=== PATIENT | male | born 1980 | race Caucasian/White ===

== ENCOUNTER 2022-03-28 22:05 | Emergency (ER) | payer MEDICAID ==
[~2022-03-28] VITALS: Ht 182.9 cm; Wt 63.6 kg
[2022-03-29] MEDS ORDERED: NO HOME MEDS (00:48)
[2022-03-29] MEDS ORDERED: DOXYCYCLINE 100MG CAPSULE PO STA (02:15)
[2022-03-29] MEDS ORDERED: acetaminophen 325mg tablet PO ONE (02:15)
[2022-03-29] MEDS ORDERED: ibuprofen 200mg tablet PO ONE (02:15)
[2022-03-29] MEDS ORDERED: CEPH-585 PO (02:28)
[2022-03-29] MEDS ORDERED: cephalexin 250mg capsule PO ONE (02:30)
[2022-03-29 04:53] VITALS: BP 111/73
== END 2022-03-29 04:55 | disposition home or self-care (01) ==
LOC: ER 22:05
DX: S90.812A Abrasion, left foot, initial encounter (principal); S90.811A Abrasion, right foot, initial encounter; Z91.040 Latex allergy status; Z59.00 Homelessness unspecified; X58.XXXA Exposure to other specified factors, initial encounter; Y93.89 Activity, other specified; Y92.89 Other specified places as the place of occurrence of the external cause; Y99.8 Other external cause status
CPT/HCPCS: 73630; 82948; 99284

== ENCOUNTER 2022-05-04 02:26 | Emergency (ER) | payer MEDICAID ==
[~2022-05-04] VITALS: Ht 182.9 cm; Wt 81.5 kg
[~2022-05-04 02:26] MED LIST: NO HOME MEDS
[2022-05-04] MEDS ORDERED: ketorolac trometh. 30mg/ml inj. IV ONE (05:05)
[2022-05-04] MEDS ORDERED: ringers solution, lacted 1,000 ML IV ONE (05:05)
[2022-05-04 05:39] LABS: BASOPHILS % (AUTO) 0.4 % (0-1); EOSINOPHILS # (AUTO) 0.2 X10'3 (0-0.9); EOSINOPHILS % (AUTO) 2.5 % (0-6); HEMATOCRIT 41.9 % (42.0-52.0); LYMPHOCYTES # (AUTO) 1.6 X10'3 (1.1-4.8); LYMPHOCYTES % (AUTO) 25.4 % (21-51); MEAN CORPUSCULAR HGB CONC 33.3 g/dL (33.0-36.5); MEAN PLATELET VOLUME 8.1 FL (7.4-10.4); MONOCYTES # (AUTO) 0.6 X10'3 (0-0.9); MONOCYTES % (AUTO) 8.8 % (2-12); NEUTROPHILS % (AUTO) 62.9 % (42-75); PLATELET COUNT 272 X10'3 (140-440); RED BLOOD COUNT 4.65 X10'6 (4.70-6.10); RED CELL DISTRIBUTION WIDTH 14.3 % (11.5-14.5); WHITE BLOOD COUNT 6.4 X10'3 (4.5-11.0)
[2022-05-04 05:57] LABS: ALANINE AMINOTRANSFERASE 17 U/L (12-78); ALBUMIN 4.1 G/DL (3.4-5.0); ALBUMIN/GLOBULIN RATIO 1.5 (1.1-1.5); ALKALINE PHOSPHATASE 63 IU/L (46-116); ANION GAP 12 (8-16); ASPARTATE AMINO TRANSFERASE 11 U/L (10-37); BILIRUBIN,TOTAL 0.7 MG/DL (0.1-1.0); BLOOD UREA NITROGEN 12 MG/DL (7-18); BUN/CREATININE RATIO 12.2 (5.4-32.0); CALCIUM 8.9 MG/DL (8.5-10.1); CHLORIDE 104 MMOL/L (99-107); CREATININE 0.98 MG/DL (0.60-1.10); ETHANOL < 0.010 GM/DL (0.0-0.010); GLUCOSE 90 MG/DL (70-104); LIPASE 83 U/L (73-393); POTASSIUM 3.2 MMOL/L (3.5-5.1); SODIUM 143 MMOL/L (135-145); TOTAL CARBON DIOXIDE 27.2 MMOL/L (24-32); TOTAL PROTEIN 6.9 G/DL (6.4-8.2); eGFR 85 ML/MIN
[2022-05-04 06:48] LABS: URINE AMPHETAMINE SCREEN NEGATIVE (Neg); URINE BARBITUATE SCREEN NEGATIVE (Neg); URINE BENZODIAZEPINES SCREEN NEGATIVE (Neg); URINE CANNABINOID SCREEN NEGATIVE (Neg); URINE COCAINE SCREEN NEGATIVE (Neg); URINE METHADONE SCREEN NEGATIVE (Neg); URINE OPIATE SCREEN NEGATIVE (Neg); URINE PHENCYCLIDINE SCREEN NEGATIVE (Neg)
[2022-05-04 06:55] LABS: CLARITY,URINE CLEAR (Clear); COLOR,URINE YELLOW (Yellow); GLUCOSE, URINE NEGATIVE (Neg); KETONES,URINE NEGATIVE (Neg); LEUKOCYTE ESTERASE ,URINE NEGATIVE (Neg); NITRITES, URINE NEGATIVE (Neg); OCCULT BLOOD,URINE MODERATE (Neg); PROTEIN,URINE NEGATIVE (Neg)
[2022-05-04 07:06] LABS: UA COLLECTION TYPE VOIDED
[2022-05-04 07:08] LABS: BACTERIA,URINE NONE SEEN /HPF (Neg); SQUAMOUS EPITHELIAL CELL,UR FEW /LPF (FEW); WBC,URINE 0-4 /HPF (0-4)
[2022-05-04 07:09] LABS: MUCUS STRANDS MANY /LPF (Neg)
[2022-05-04] MEDS ORDERED: potassium chloride 10mEq ER tablet PO ONE (07:20)
[2022-05-04] MEDS ORDERED: potassium Cl 20 mEq SR tablet PO ONE (07:25)
[2022-05-04 08:08] VITALS: BP 123/88
== END 2022-05-04 08:10 | disposition home or self-care (01) ==
LOC: ER 02:27
DX: M54.9 Dorsalgia, unspecified (principal); R10.9 Unspecified abdominal pain; Z87.442 Personal history of urinary calculi; Z59.00 Homelessness unspecified; Z91.040 Latex allergy status; Z79.899 Other long term (current) drug therapy
CPT/HCPCS: 36415; 74176; 80053; 80305; 80320; 81001; 83690; 85025; 96361; 96374; 99284; J1885; J7120

== ENCOUNTER 2024-04-30 21:52 | Emergency (ER) | payer MEDICAID ==
[~2024-04-30] VITALS: Ht 182.9 cm; Wt 69.5 kg
[2024-04-30 23:08] VITALS: BP 152/74; PULSE 88; RESP 16; TEMP 100.1; O2SAT 99
== END 2024-04-30 23:07 | disposition home or self-care (01) ==
LOC: ER 21:53
DX: S20.212A Contusion of left front wall of thorax, initial encounter (principal); Z91.040 Latex allergy status; Z87.442 Personal history of urinary calculi; Z59.00 Homelessness unspecified; W19.XXXA Unspecified fall, initial encounter; Y93.89 Activity, other specified; Y92.89 Other specified places as the place of occurrence of the external cause; Y99.8 Other external cause status
CPT/HCPCS: 71101; 99283

== ENCOUNTER 2024-07-27 21:11 | Emergency (ER) | payer MEDICAID ==
[~2024-07-27] VITALS: Ht 182.9 cm; Wt 73.8 kg
[2024-07-27 21:14] VITALS: BP 116/82; PULSE 93; RESP 16; TEMP 98.6; O2SAT 96
[2024-07-27] MEDS: LIDOcaine 1% W/epiNEPHrine 1:100,000 20ml vial SQ STA (22:20)
[2024-07-27] MEDS ORDERED: SULF1TAB49 PO (23:05)
[2024-07-27] MEDS: sulfamethoxazole/trimethoprim DS (800/160mg) tablet PO STA (23:07)
== END 2024-07-27 23:35 | disposition home or self-care (01) ==
LOC: ER 21:12
DX: S60.552A Superficial foreign body of left hand, initial encounter (principal); Z91.040 Latex allergy status; W45.8XXA Other foreign body or object entering through skin, initial encounter; Y93.89 Activity, other specified; Y92.89 Other specified places as the place of occurrence of the external cause; Y99.8 Other external cause status
CPT/HCPCS: 10120; 73130; 99285; A6258; A6449

== ENCOUNTER 2024-08-30 23:39 | Emergency (ER) | payer MEDICAID ==
[~2024-08-30] VITALS: Ht 182.9 cm; Wt 63.3 kg
[2024-08-30 23:40] VITALS: BP 160/99; PULSE 102; RESP 15; O2SAT 98
[2024-08-31 00:09] VITALS: TEMP 97.8
== END 2024-08-31 00:11 | disposition home or self-care (01) ==
LOC: ER 23:39
DX: R21 Rash and other nonspecific skin eruption (principal); Z91.040 Latex allergy status; Z87.442 Personal history of urinary calculi
CPT/HCPCS: 99281

== ENCOUNTER 2025-07-11 01:17 | Emergency (ER) | payer MEDICAID ==
[~2025-07-11] VITALS: Ht 177.8 cm; Wt 74.9 kg
--- NOTE | 2025-07-11 01:30 | Physician Documentation ---
History of Present Illness ~ Chief Complaint: Rash Stated Complaint: FOOT DISCOMFORT Time Seen by MD: 01:29 Primary Medical Doctor: ROYCE QUINTEROS HPI Patient presents to the emergency room with a rash of the top of his left foot that has been going on for at least a month. He has a attempted no topical medications. No other symptoms Medication Reconciliation Allergies: Coded Allergies: latex (Verified Allergy, Unknown, 07/11/25) Miscellaneous Medications Home Med List (No Home Medications), (Reported) Past Medical History Past Medical History: Seizures, Kidney Stones Past Surgical History: noncontributory Alcohol Use: None Drug Use: none Lives with: Family Lives In: Homeless Occupation: disabled Review of Systems ROS All review of systems negative except as per HPI Physical Exam Vital Signs: Temperature: 98.1, Source: Oral, Heart Rate: 76, Respiratory Rate: 16, BP: 142/82, Pulse Oximetry: 99, Weight: 74.860 Physical Exam General: Patient is awake, alert, oriented x4 in no acute distress and well appearing.~ Head: Normocephalic and atraumatic. Eyes: Conjunctival normal. EOMI. PERRL. ENT: Mucous membranes moist. Neck: Supple, trachea is midline. Chest: Clear to auscultation bilaterally without rales, rhonchi, or wheezes. There is no accessory muscle use or retractions. Cardiac: RRR without murmurs, gallops, or rubs. Extremity: Patient appears to have a fungal infection measuring 5 cm x 5 cm to the dorsum in his left foot. Progress Results/Orders Results/Orders Vital Signs 07/11/25 01:18 Temp 98.1 Pulse 76 Resp 16 B/P (MAP) 142/82 Pulse Ox 99 Medical Decision Making Additional information obtaine: N/A Findings Patient presented to the emergency room with rash with the top of his left foot that has been going on for a month. Physical exam that has reassuring for no cellulitis however I do believe he is suffering from a fungal infection we will treat him accordingly. Differential Dx:Considerations: Include: Atopic dermatitis Departure Disposition: HOME / SELF CARE / HOMELESS Impression: Primary Impression: Fungal dermatitis Condition: Stable Discharge Instructions: Rash, Adult Additional Instructions: Follow up on outpatient basis with your doctor for further follow up Referrals: NO PRIMARY CARE PROVIDER (PCP) Prescriptions Ketoconazole (Ketoconazole) 2 % Cream..g. 1 APPLIC TOP Q12H for 14 Days, #60 GM 0 Refills apply to affected area(s) Prov: MATT MURRELL MD 07/11/25 Signature Scribe Signature: No scribe Attestation: The note accurately reflects work and decisions made by me.Matt Murrell MD 07/11/25 01:39 MATT MURRELL MD Jul 11, 2025 01:30
[2025-07-11 01:33] VITALS: BP 152/102; PULSE 76; RESP 16; TEMP 98.1; O2SAT 98
[2025-07-11] MEDS ORDERED: KETO15CR2 TOP (01:39)
== END 2025-07-11 01:48 | disposition home or self-care (01) ==
LOC: ER 01:17
DX: B36.9 Superficial mycosis, unspecified (principal); Z87.442 Personal history of urinary calculi; Z91.040 Latex allergy status; Z59.00 Homelessness unspecified
CPT/HCPCS: 99282